=== PATIENT | female | born 1995 ===

== ENCOUNTER 2017-08-10 12:45 | Observation (INO) | payer OTHER ==
[2017-08-10] MEDS ORDERED: BETAMETHASONE IM SYRINGE IM SCH (15:15)
[2017-08-10] MEDS ORDERED: BETAMETHASONE IM SYRINGE IM ONE (15:45)
[2017-08-10] MEDS ORDERED: MAGNESIUM SULF 4 GM/WATER 100 ML IV ONE (19:55)
[2017-08-10] MEDS ORDERED: CALCIUM GLUC 10% 1 GM/10 ML VIAL IVP PRN (19:55)
[2017-08-10] MEDS ORDERED: Mag Sulf 500 ML IV SCH (20:00)
--- NOTE | 2017-08-10 20:59 | GHP ---
[f rep st] HISTORY AND PHYSICAL DATE OF ADMISSION: 08/10/2017 ADMITTING DIAGNOSIS: Intrauterine at 32 and 2/7 weeks' gestation with labor. HISTORY OF PRESENT ILLNESS: The patient is a 21-year-old, 1, para 0, with a last menstrual p eriod of 12/27/2016, and EDC of 10/03/2017, which was confirmed by a first-trimester ultrasound. The patient has had care at the [facility] since 14 weeks' gestation. She presented to Labor and Delivery at [facility] complaining of increased contractions. The patie nt reports increased contractions over the last 2 weeks, increasing in intensity and severity, worsen ing over the past week. She is concerned for possible labor. Incidentally, her mother had a history of a . Patient is concerned about this happening for her as well. The patient denies vaginal bleeding, leakage of fluid, abnormal discharge. Has reported good movement. C ontractions have been irregular in pattern. However, increasing in intensity over the course of the day. Upon initial evaluation in Labor and Delivery, heart tones were 140s, reactive, moderate variab ility, category 1. She has irregular contractions that have increased over the last couple hours. E xamination included a sterile speculum exam to look for gonorrhea, chlamydia and infections, which ar e pending. A fibronectin was performed, which was positive. Her cervical exam was fingertip, 25% and high, posterior and cephalic. Baby is cephalic. The patient will be admitted for labor evaluation and treatment. PAST OBSTETRICAL HISTORY: None. This is her first . She has had issues with severe hypere mesis in this . Never been hospitalized or had any IV fluids needed in this . PAST GYNECOLOGICAL HISTORY: She has no significant past gynecological problems. PAST MEDICAL HISTORY: No medical history or surgical history. ALLERGIES: She has no known drug allergies. MEDICATIONS: Has been on vitamin B6 and Unisom. SOCIAL HISTORY: Noncontributory. LABORATORY: She is A positive, antibody negative, RPR nonreactive, rubella immune, hepatitis negativ e, HIV negative, gonorrhea and chlamydia negative. She declined genetic screening in this . Her 1-hour GTT was 81. Most recent hematocrit was 40.8. She had a normal anatomy ultrasound at 23 weeks. REVIEW OF SYSTEMS: A 10-point review of systems was negative except for pertinent positives as above in HPI. PHYSICAL EXAMINATION: GENERAL: Patient is afebrile. VITAL SIGNS: Stable. Again, heart tone s 140s, reactive, moderate variability, category 1. PELVIC: Contractions are irregular, as many as 6-7 in an hour and other episodes where there are none. CERVIX: Fingertip and soft. fibronec tin was positive. ASSESSMENT/PLAN: A 21-year-old 1, para 0, at 32 and 2/7 weeks' gestation with positive fibronectin, irregular contractions on the monitor. The patient is admitted and has been given beta methasone for lung maturity. We will give her a course of magnesium for neuro-protection as well as tocolysis to complete the betamethasone course. Then, we will assess her contraction sta tus. The patient is in agreement with the plan. /[id number]/MODL
[2017-08-10] MEDS ORDERED: LR 1,000 ML IV SCH (21:00)
[2017-08-10] MEDS: ONDANSETRON 4 MG/2 ML VIAL IVP PRN (21:08)
[2017-08-10 21:34] LABS: PLATELET COUNT 234 10^3/uL (150-400)
[2017-08-10] MEDS ORDERED: NIFEdipine 10 MG CAP PO SCH (22:00)
[2017-08-11] MEDS ORDERED: ZOLPIDEM TARTRATE 5 MG TAB PO ONE (01:52)
[2017-08-11] MEDS: ONDANSETRON 4 MG/2 ML VIAL IVP PRN ×2 (07:16→15:44)
[2017-08-11] MEDS ORDERED: ACETAMINOPHEN 500 MG TAB PO PRN (07:18)
--- NOTE | 2017-08-11 10:57 | OBPROG ---
Labor Progress Note Assessment/Plan: Assessment: 21 yo at 32w2d currently with no current evidence of labor, though has had continued contractions. Long cervical length currently is strong predictor against delivery any time soon, despite + FFN which is quite nonspecific and nonpredictive by itself. S/P betamethasone at 1600. S/p over 12 hours of Magsulfate for neuroprotection. Plan: Stop Magsulfate. Will observe until 1600 and administer 2nd dose of betamethasone. As long as appears stable - will dc home after 2nd dose betameth. PTL precautions reviewed. Recommended FU in office in 2 days - whether at [facility] or the Center. Recommended she consider care with [facility] and delivery at a hospital. Recommended pelvic rest for the next week. Tootie Hartman MD, FACOG 08/11/17 11:06 Subjective/Intrapartum Course: 08/11/17 11:16 Doing well. Some nausea with the magsulfate. Feeling an occasional mild contraction. No dyspnea, no chest pain. Good FM. Objective: 08/10/17 20:40 Patient ABO/Rh A POSITIVE 08/10/17 20:40 gen - pleasant, NAD abd - gravid, soft, NT CV - RRR chest - CTAB abd - gravid, soft, NT ext - no calf tenderness, no edema TVUS done - cephalic, cervical length 4.0, 3.8, 3.8cm, no funneling even after fundal pressure. - Contraction Pattern Assessment Current Contraction Pattern: Irregular - FHR Assessment Charles FHR (bpm): 130 FHR Pattern Variability: Moderate - Physical Exam General Appearance: WD/WN Oxytocin Orders Assessment - Pre-Induction/Augmentation Assessment Gestational Age: 32 week(s) and 4 day(s) ICD10 Worksheet Patient Problems: Problems Problem Status Onset uterine contractions in third trimester, antepartum Acute - ICD10 Problem Qualifiers (1) uterine contractions in third trimester, antepartum SNOMED Code(s): 965961040
[2017-08-11 13:07] LABS: GC AMPLIFICATION GENPROBE NEGATIVE (NEGATIVE)
[2017-08-11] MEDS ORDERED: BETAMETHASONE IM SYRINGE IM ONE (15:45)
[2017-08-11] MEDS ORDERED: NIFEdipine 10 MG CAP PO SCH (19:06)
== END 2017-08-11 16:45 | disposition home or self-care (01) ==
LOC: FLD 12:45
PROVIDERS: ADMIT Advanced Practice Midwife; ATTEND Obstetrics & Gynecology
PROC: 3E0E73Z Introduction of Anti-inflammatory into Products of Conception, Via Natural or Artificial Opening (ICD-10-PCS; principal; 2017-08-10)
DX: O60.03 Preterm labor without delivery, third trimester (principal); Z3A.32 32 weeks gestation of pregnancy
CPT/HCPCS: 59025; 96372; G0378; J0702; J2405; J3475

== ENCOUNTER 2017-08-23 01:45 | Inpatient (IN) | payer OTHER ==
[2017-08-23] MEDS ORDERED: LR 1,000 ML IV SCH (02:30)
[2017-08-23] MEDS ORDERED: LR 500 ML IV ONE (02:30)
[2017-08-23] MEDS: ONDANSETRON DISINTEGRATING 4 MG TAB PO PRN ×2 (04:40→10:05)
[2017-08-23] MEDS ORDERED: NIFEdipine 10 MG CAP PO ONE (04:45)
[2017-08-23] MEDS ORDERED: LIDOCAINE 1% 300 MG/30 ML SDV SC PRN (05:21)
[2017-08-23] MEDS ORDERED: OLIVE OIL 118 ML BTL MISC PRN (05:21)
[2017-08-23] MEDS ORDERED: MISOPROSTOL 200 MCG TAB PR PRN (05:21)
[2017-08-23] MEDS ORDERED: OXYTOCIN/NORMAL SALINE 1,000 ML IV PRN (05:21)
[2017-08-23] MEDS ORDERED: LR 1,000 ML IV PRN (05:21)
[2017-08-23] MEDS ORDERED: EPSOM SALT 454 GM TP PRN (05:21)
[2017-08-23] MEDS ORDERED: TERBUTALINE SULFATE 1 MG/ML VIAL IV PRN (05:21)
[2017-08-23] MEDS ORDERED: AMPICILLIN SODIUM 2 GM in STERILE WATER INJ 25 ML IV ONE (05:47)
[2017-08-23] MEDS ORDERED: LR 500 ML IV PRN (05:49)
[2017-08-23] MEDS ORDERED: OXYTOCIN/NORMAL SALINE 500 ML IV SCH (06:00)
[2017-08-23 06:03] LABS: PLATELET COUNT 213 10^3/uL (150-400)
--- NOTE | 2017-08-23 06:22 | GHP ---
[f rep st] PREOP HISTORY AND PHYSICAL DATE OF ADMISSION: 08/23/2017 ADMITTING DIAGNOSIS: Intrauterine at 34-2/7 weeks gestation with premature rupture of the membranes and contractions. HISTORY OF PRESENT ILLNESS: The patient is a 21-year-old, 1, para 0, with a last menstrual p eriod of 12/27/2016, EDC of 10/03/2017, confirmed by 1st trimester ultrasound. The patient has had p renatal care at [facility] since registration at 14 weeks gestation. She originally presen nehemiah to labor and delivery at [facility] on 08/10/2017, complaining of contrac tions. Upon evaluation, she was found to have a positive fibronectin and her contractions incr eased during that observation. She was admitted, received a course of betamethasone and a course of magnesium for neural protection. Her contractions remained stable. The patient had no further progr ession of contractions and she was discharged home. She has followed up at [facility] in the interim, and on the morning of the , she called complaining of increased contractions. She says that she had some increasing discharge which became watery on Wednesday the , but never h ad a gush of fluid. She had increased contractions over the weekend and increased into the morning o f the , and they were every 8 minutes the morning of the . When she was evaluated originally , heart tones were in the 140s, reactive, moderate variability, category 1. She had irregular contractions every 5-8 minutes, which increased over a couple hours. Upon further questioning when p atient talked about her wetness, and she was noted to not have the presence of a bag palpated on cerv ical exam, we performed an AmniSure, which was positive. Therefore, she was diagnosed with p remature rupture of the membranes at 34 weeks and she will be admitted for augmentation and delivery. The patient has no past obstetrical history; this is her 1st . She has had issues with se bony hyperemesis in this . She has not been hospitalized or had any IV fluids. She has no significant past gynecological problems, no significant medical or surgical history. ALLERGIES: No known drug allergies. MEDICATIONS: Include vitamin B6. She is on vitamins. SOCIAL HISTORY: Noncontributory. LABORATORY DATA: She is A positive, antibody negative, RPR nonreactive, rubella immune, hepatitis ne gative, HIV negative, gonorrhea and chlamydia negative. Declined genetic screening in this . 1-hour GTT was 81. Her hematocrit was 40.8. GBS culture is pending. REVIEW OF SYSTEMS: A 10-point review of systems is negative except for pertinent positives as above in HPI. PHYSICAL EXAMINATION: VITAL SIGNS: On exam, she is afebrile. Vital signs are stable. ABDOMEN: Fe sena heart tones 140s, reactive, moderate variability, category 1. She is ana irregular every 5-8 minutes. Cervical exam is 1-1/2, 50%, -3, cephalic and posterior, and she is positive rupture. ASSESSMENT AND PLAN: 21-year-old 1, para 0, at 34-2/7 weeks gestation with positive AmniSure , premature rupture of membranes. The patient will be admitted. 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 /[id number]/MODL
[2017-08-23] MEDS ORDERED: TERBUTALINE SULFATE 1 MG/ML VIAL ONE (08:04)
[2017-08-23] MEDS ORDERED: OLIVE OIL 118 ML BTL ONE (08:04)
[2017-08-23] MEDS ORDERED: AMMONIA AROMATIC 1 EACH AMP IH ONE (08:04)
[2017-08-23] MEDS ORDERED: LIDOCAINE 1% 300 MG/30 ML SDV ONE (08:04)
[2017-08-23] MEDS ORDERED: OXYTOCIN 10 UNIT/ML VIAL ONE (08:04)
[2017-08-23] MEDS ORDERED: MISOPROSTOL 200 MCG TAB ONE (08:05)
[2017-08-23] MEDS ORDERED: ACETAMINOPHEN 325 MG TAB PO PRN ×2 (08:06→13:04)
--- NOTE | 2017-08-23 09:27 | OBPROG ---
Labor Progress Note Assessment/Plan: Assessment: 21 yo G1 at 34w2d by LMP and first trimester US, with PPROM - for what appears to be about 48 hours. S/P a course of betamethasone at 32w3d. Currently with no signs and symptoms of chorioamnionitis. Cephalic. Alex score likely around 4 ( I did not repeat the check) Plan:Induction with pitocin. No indication for rescue dose of steroids as she is over 34 weeks with PROM Slightly higher risk of chorioamnionitis with the use of prostaglandins with, so will proceed with pitocin. B/R/A of pitocin reviewed. EFW 6lb C/S capabilities readily available. Tootie Hartman MD, FACOG 08/23/17 09:15 Subjective/Intrapartum Course: Pt doing well, feeling some irregular contractions which are becoming more painful. Is considering she may want an epidural for pain control. When asked for more details - thinks she has been leaking blood tinged fluid since Wednesday morning = 48 hours. 08/23/17 09:29 Objective: 08/23/17 05:50 Patient ABO/Rh A POSITIVE 08/23/17 05:50 37.1 83 16 124/75 Abd us done - confirmed cephalic presentation, currently LOT No measurable pocket of fluid without cord in it - confirms PROM gen - pleasant, NAD abd - gravid, soft, NT when not ana. ext - calves NT, no edema - SVE Dilation (cm): 1 Effacement (%): Less than 50 Station: -3 Membranes: SROM Amniotic Fluid Color: Clear - Contraction Pattern Assessment Current Contraction Pattern: Irregular - FHR Assessment Charles FHR (bpm): 130 FHR Pattern Variability: Moderate FHR Category: 1 - AP Antepartum Course: Was evaluated and treated for possible labor at 32w3d - received a course of betamethasone, and magsulfate for neuroprotection. PPROM appears to have occurred at 34wk, but she presented to L&D at 34w2d with some irregular contractions, and bloody show, and then Amnisure wasa positive. Pitocin induction started the morning of 08/23/17, at 34w2d, approximately 48 hours after induction. 08/23/17 09:31 Oxytocin Orders Assessment - Pre-Induction/Augmentation Assessment Gestational Age: 34 week(s) and 3 day(s) ICD10 Worksheet Patient Problems: Problems Problem Status Onset uterine contractions in third trimester, antepartum Acute
[2017-08-23] MEDS ORDERED: FENT2MCG/ML&BUP0.1% 1 EA, fentaNYL 200 MCG, BUPIVACAINE 0.5% 20 ML in NS 100 ML IV SCH (10:43)
[2017-08-23] MEDS ORDERED: NARCOTIC DRIP BAG-TOTAL ALL TYPES IV PRN (10:43)
[2017-08-23] MEDS: AMPICILLIN SODIUM 1 GM in STERILE WATER INJ 15 ML IV SCH ×2 (10:51→15:36)
--- NOTE | 2017-08-23 11:01 | OBPROG ---
Labor Progress Note Assessment/Plan: Assessment: 21 yo G1 at 34w2d by LMP and first trimester US, with PPROM - for what appears to be about 48 hours. S/P a course of betamethasone at 32w3d. Currently with no signs and symptoms of chorioamnionitis. Cephalic. Alex score likely around 4 ( I did not repeat the check) Plan:Induction with pitocin. No indication for rescue dose of steroids as she is over 34 weeks with PROM Slightly higher risk of chorioamnionitis with the use of prostaglandins with, so will proceed with pitocin. B/R/A of pitocin reviewed. EFW 6lb C/S capabilities readily available. Tootie Hartman MD, FACOG 08/23/17 10:58 A/P: 21 g1 at 34w2d with PPROM - now in active labor. Desires epidural. Will proceed with that. Anticipate vaginal delivery Subjective/Intrapartum Course: Pt doing well, feeling some irregular contractions which are becoming more painful. Is considering she may want an epidural for pain control. When asked for more details - thinks she has been leaking blood tinged fluid since Wednesday morning = 48 hours. 08/23/17 09:29 08/23/17 11:01 Very uncomfortable, requesting epidural. Demanded pitocin be turned off. Objective: 08/23/17 05:50 Patient ABO/Rh A POSITIVE 08/23/17 05:50 37.2 68 141/73 SVE 6/90/-2 - SVE Dilation (cm): 6 Effacement (%): 90 Station: -2 Membranes: SROM Amniotic Fluid Color: Clear - Contraction Pattern Assessment Current Contraction Pattern: Regular, Irregular - FHR Assessment Charles FHR (bpm): 125 FHR Pattern Variability: Moderate FHR Category: 1 - AP Antepartum Course: Was evaluated and treated for possible labor at 32w3d - received a course of betamethasone, and magsulfate for neuroprotection. PPROM appears to have occurred at 34wk, but she presented to L&D at 34w2d with some irregular contractions, and bloody show, and then Amnisure wasa positive. Pitocin induction started the morning of 08/23/17, at 34w2d, approximately 48 hours after induction. 08/23/17 09:31 Oxytocin Orders Assessment - Pre-Induction/Augmentation Assessment Gestational Age: 34 week(s) and 3 day(s) ICD10 Worksheet Patient Problems: Problems Problem Status Onset uterine contractions in third trimester, antepartum Acute
[2017-08-23] MEDS ORDERED: BUPIVACAINE 0.25% 30 ML SDV ONE (11:19)
[2017-08-23] MEDS ORDERED: fentaNYL 200 MCG, BUPIVACAINE 0.5% 20 ML in NS 100 ML EP SCH (11:30)
[2017-08-23] MEDS ORDERED: ONDANSETRON 4 MG/2 ML VIAL IVP PRN (11:32)
[2017-08-23] MEDS ORDERED: NALOXONE HCL 0.4 MG/ML INJ IVP PRN (11:32)
[2017-08-23] MEDS ORDERED: PHENYLEPHRINE HCL 100 MCG/ML SYR IVP PRN (11:32)
--- NOTE | 2017-08-23 11:41 | PREANESOB ---
Obstetric Pre-Anesthesia Info - General Info Proposed Procedure: TEGAN : 1 Para: 0 DARWIN: 10/01/17 Gestational Age: 34 week(s) and 3 day(s) - Info Status: Premature FHR Pattern: Reassuring - Labor Status Cervical Dilation per last OB SVE: 6 Station per last OB SVE: -2 Amniotic Fluid Color: Clear Magnesium Sulfate in Use: No Labor Epidural: Yes Anesthesia Allergies/Adverse Reactions: Allergy/AdvReac Type Severity Reaction Status Date / Time No Known Allergies Allergy Unverified 08/23/17 07:16 Home Medications: Medication Instructions Recorded Acetaminophen [Tylenol ES 500 mg 1,000 mg PO Q6HRS PRN tab 08/11/17 (*)] B-Complex Tablet 08/23/17 Unisom 08/23/17 Vitamin D3 08/23/17 Visit Medications: Generic Name Dose Route Start Last Admin Trade Name Freq PRN Reason Stop Dose Admin Acetaminophen 325 - 650 mg 08/23/17 08:06 08/23/17 08:18 Tylenol PO 02/19/18 08:05 650 mg Q4HRS PRN Administration Pain, Mild/Fever, Can Take PO Diphenhydramine HCl 25 - 50 mg 08/23/17 11:32 Benadryl Injection IVP 02/19/18 11:31 Q6HRS PRN Itching Lactated Ringer's 1,000 mls @ 125 mls/hr 08/23/17 02:30 08/23/17 06:31 Lr IV 02/19/18 02:29 1,000 mls CONT YESENIA Administration Lactated Ringer's 1,000 mls @ 0 mls/hr 08/23/17 05:21 Lr IV 08/24/17 05:20 PRN PRN SEE PROTOCOL CONDITIONS Protocol Per Protocol Oxytocin/Sodium Chloride 1,000 mls @ 125 mls/hr 08/23/17 05:21 Pitocin 20 Units/Ns (Premix) IV PRN PRN Post Bleeding Ampicillin Sodium 1 gm/ 15 mls @ 60 mls/hr 08/23/17 10:00 08/23/17 10:51 Sterile Water IV 09/22/17 09:59 15 mls Q4H YESENIA Administration Protocol Lactated Ringer's 500 mls @ 500 mls/hr 08/23/17 05:49 Lr IV 08/24/17 05:49 PRN PRN Maternal Hypotension Oxytocin/Sodium Chloride 500 mls @ 0 mls/hr 08/23/17 06:00 08/23/17 09:27 Pitocin 30 Units/Ns (Premix) IV 02/19/18 05:59 500 mls CONT YESENIA Administration Protocol Per Protocol Fentanyl 200 mcg/ Bupivacaine 100 mls @ 0 mls/hr 08/23/17 11:30 HCl 20 ml/ Sodium Chloride EP 09/02/17 11:29 CONT YESENIA Protocol As Directed Lactated Ringer's 500 mls @ 0 mls/hr 08/23/17 12:00 Lr IV 02/19/18 11:59 CONT YESENIA As Directed Ibuprofen 600 mg 08/23/17 05:21 Motrin PO 02/19/18 05:20 Q6HRS PRN post , inflammation Lidocaine HCl 300 mg 08/23/17 05:21 Lidocaine Hcl 1% SC 02/19/18 05:20 ONCE PRN episiotomy Magnesium Sulfate 454 gm 08/23/17 05:21 Epsom Salt TP 02/19/18 05:20 Q1H PRN perineal discomfort Miscellaneous Medication 0 ea 08/23/17 21:00 Non-Formulary PO 02/19/18 20:59 BID YESENIA Miscellaneous Medication 1 ea 08/23/17 10:43 Narcotic Drip-Total All Types IV 02/19/18 10:42 PRN PRN Pyxis removal Misoprostol 800 - 1,000 mcg 08/23/17 05:21 Cytotec TN ONCE PRN Vaginal Atony/Bleeding Naloxone HCl 0.4 mg 08/23/17 11:32 Narcan IVP 02/19/18 11:31 PRN PRN Respiratory depression [place] Oil 118 ml 08/23/17 05:21 Sweet Oil MISC 02/19/18 05:20 ONCE PRN perineal massage Ondansetron HCl 4 mg 08/23/17 04:31 08/23/17 10:05 Zofran Odt PO 02/19/18 04:30 4 mg Q4 PRN Administration Nausea/Vomiting, Use 1st Ondansetron HCl 4 mg 08/23/17 11:32 Zofran IVP 08/24/17 11:31 Q4HRS PRN Nausea/Vomiting, Can't Take PO Phenylephrine HCl 100 mcg 08/23/17 11:32 Neosynephrine IVP 02/19/18 11:31 .Q2M PRN Hypotension Terbutaline Sulfate 0.25 mg 08/23/17 05:21 Brethine IV 02/19/18 05:20 ONCE PRN Tachysystole Discontinued Medications Generic Name Dose Route Start Last Admin Trade Name Darlene PRN Reason Stop Dose Admin Ammonia (Aromatic Spirit) Confirm 08/23/17 08:04 Ammonia Aromatic Administered 08/23/17 08:05 Dose 1 each IH .STK-MED ONE Bupivacaine HCl Confirm 08/23/17 11:19 Sensorcaine 0.25% Sdv Administered 08/23/17 11:20 Dose 30 ml .ROUTE .STK-MED ONE Lactated Ringer's 500 mls @ 0 mls/hr 08/23/17 02:30 08/23/17 08:54 Lr IV 08/23/17 02:31 Not Given ONCE ONE Wide Open Ampicillin Sodium 2 gm/ 25 mls @ 100 mls/hr 08/23/17 05:47 08/23/17 06:11 Sterile Water IV 08/23/17 06:01 25 mls ONCE ONE Administration Protocol Lidocaine HCl Confirm 08/23/17 08:04 Lidocaine Hcl 1% Administered 08/23/17 08:05 Dose 300 mg .ROUTE .STK-MED ONE Misoprostol Confirm 08/23/17 08:05 Cytotec Administered 08/23/17 08:06 Dose 1,000 mcg .ROUTE .STK-MED ONE Nifedipine 20 mg 08/23/17 04:45 08/23/17 04:41 Procardia PO 08/23/17 04:46 20 mg ONCE ONE Administration [place] Oil Confirm 08/23/17 08:04 Sweet Oil Administered 08/23/17 08:05 Dose 118 ml .ROUTE .STK-MED ONE Oxytocin Confirm 08/23/17 08:04 Pitocin Administered 08/23/17 08:05 Dose 40 unit .ROUTE .STK-MED ONE Terbutaline Sulfate Confirm 08/23/17 08:04 Brethine Administered 08/23/17 08:05 Dose 1 mg .ROUTE .STK-MED ONE - Vital Signs Height/Weight (Nursing): Height 160.02 cm Weight 64.41 kg Labs: 08/23/17 05:50 Patient ABO/Rh A POSITIVE 08/23/17 05:50
--- NOTE | 2017-08-23 11:45 | POSTANESTH ---
Post Anesthetic Evaluation Cardiovascular Status: Normal, Stable, Similar to Pre-Op Cond Respiratory Status: Normal, Stable, Similar to Pre-op Cond. Level of Consciousness/Mental Status: Can Participate in Eval, Alert and Oriented Pain Control: Adequate, Prn Tx Ordered Nausea/Vomiting Control: Adequate, Prn Tx Ordered Complications Possibly Related to Anesthesia: None Noted
[2017-08-23] MEDS ORDERED: LR 500 ML IV SCH (12:00)
[2017-08-23] MEDS ORDERED: fentaNYL 2MCG/ML/BUP 0.1% RTU 100 ML EP SCH (12:00)
--- NOTE | 2017-08-23 12:55 | OBDEL ---
Info Type: Vaginal Presentation at Delivery: Vertex L&D Analgesia/Anesthesia Type: Epidural GBS+: No (unknown) Antibiotic Used for + GBS: Ampicillin (used for prophylaxis, , unknown GBS) Intrapartum Medications: Generic Name Dose Route Start Last Admin Trade Name Darlene PRN Reason Stop Dose Admin Acetaminophen 325 - 650 mg 08/23/17 08:06 08/23/17 08:18 Tylenol PO 02/19/18 08:05 650 mg Q4HRS PRN Administration Pain, Mild/Fever, Can Take PO Lactated Ringer's 1,000 mls @ 125 mls/hr 08/23/17 02:30 08/23/17 06:31 Lr IV 02/19/18 02:29 1,000 mls CONT YESENIA Administration Ampicillin Sodium 1 gm/ 15 mls @ 60 mls/hr 08/23/17 10:00 08/23/17 10:51 Sterile Water IV 09/22/17 09:59 15 mls Q4H YESENIA Administration Protocol Oxytocin/Sodium Chloride 500 mls @ 0 mls/hr 08/23/17 06:00 08/23/17 09:27 Pitocin 30 Units/Ns (Premix) IV 02/19/18 05:59 500 mls CONT YESENIA Administration Protocol Per Protocol Ondansetron HCl 4 mg 08/23/17 04:31 08/23/17 10:05 Zofran Odt PO 02/19/18 04:30 4 mg Q4 PRN Administration Nausea/Vomiting, Use 1st Discontinued Medications Generic Name Dose Route Start Last Admin Trade Name Darlene PRN Reason Stop Dose Admin Lactated Ringer's 500 mls @ 0 mls/hr 08/23/17 02:30 08/23/17 08:54 Lr IV 08/23/17 02:31 Not Given ONCE ONE Wide Open Ampicillin Sodium 2 gm/ 25 mls @ 100 mls/hr 08/23/17 05:47 08/23/17 06:11 Sterile Water IV 08/23/17 06:01 25 mls ONCE ONE Administration Protocol Nifedipine 20 mg 08/23/17 04:45 08/23/17 04:41 Procardia PO 08/23/17 04:46 20 mg ONCE ONE Administration - Hospital Course Intrapartum: Pt doing well, feeling some irregular contractions which are becoming more painful. Is considering she may want an epidural for pain control. When asked for more details - thinks she has been leaking blood tinged fluid since Wednesday morning = 48 hours. 08/23/17 09:29 08/23/17 11:01 Very uncomfortable, requesting epidural. Demanded pitocin be turned off. Indications for Delivery: PPROM Vaginal Delivery - Delivery Provider Delivery Physician/CNM: Tootie Hartman - Labor and Delivery Onset of Contractions Date: 08/22/17 Onset of Contractions Time: 14:00 Onset of Contractions Type: Induced Rupture of Membranes Date: 08/21/17 Rupture of Membranes Time: 08:00 (unknown exact time) Rupture of Membranes Type: Premature Amniotic Fluid Color: Clear Dilation Complete Date: 08/23/17 Dilation Complete Time: 12:19 Placenta Delivery Date: 08/23/17 Placenta Delivery Time: 12:34 Total Hours of Labor: 22 Non-surgical Procedures: Amniotomy (of forebag when completely dilated.) Laceration: 2nd Degree Repair: 3-0, Vicryl Vaginal Sponge Count Correct: Yes Vaginal Needle Count Correct: Yes Vaginal Sweep Performed: Yes EBL: 300 Delivery Events: None (pushed < 10 minutes) Data DARWIN: 10/01/17 Gestational Age: 34 week(s) and 3 day(s) Charles Delivery Date: 08/23/17 Delivery Time: 12:31 Sex of : Male ICD10 Worksheet Patient Problems: Problems Problem Status Onset PROM, delivered, current hospitalization Acute delivery after section Acute uterine contractions in third trimester, antepartum Acute - ICD10 Problem Qualifiers (1) PROM, delivered, current hospitalization
[2017-08-23] MEDS: IBUPROFEN 600 MG TAB PO PRN ×2 (13:00→19:26)
[2017-08-23] MEDS ORDERED: SIMETHICONE 80 MG TAB CHEW PO PRN (13:04)
[2017-08-23] MEDS ORDERED: HYDROCORTISONE 0.5% CREAM TP PRN (13:04)
[2017-08-23] MEDS: DOCUSATE SODIUM 100 MG CAP PO PRN (19:27)
[2017-08-23] MEDS: UNISOM 25 MG PO SCH (23:04)
[2017-08-24] MEDS: IBUPROFEN 600 MG TAB PO PRN ×3 (02:26→18:18)
[2017-08-24] MEDS: DOCUSATE SODIUM 100 MG CAP PO PRN (09:52)
--- NOTE | 2017-08-24 10:06 | OBPP ---
Progress Note Assessment/Plan: Assessment: 21 y/o s/p at 34.2 wks ega after PPROM PPD #1 Baby in NICU, stable and doing well Plan: Continue routine PP care. Plan D/C to border status tomorrow 08/24/17 10:00 08/24/17 10:09 Subjective/ Course: 08/24/17 10:06 Patient is doing well this morning. Reports lochia to be light, pain controlled with oral medication, tolerating regular diet and voiding. Baby stable in NICU. Plans to breastfeed, currently pumping. Objective: 08/23/17 05:50 Patient ABO/Rh A POSITIVE 08/23/17 05:50 Group B Strep DNA NEGATIVE (NEGATIVE) 08/23/17 02:31 Temp Pulse Resp BP Pulse Ox 36.4 C 92 16 107/73 96 08/24/17 08:31 08/24/17 08:31 08/24/17 08:31 08/24/17 08:31 08/24/17 08:31 VSS Respirations unlabored Extremities with minimal edema Lochia scant Fundus firm Perineum healing well well approximated Nipples intact Uterine Position/Fundal Height: Umbilicus -1 Uterine Tone: Firm Physical Exam - Physical Exam EENT: PERRL/EOMI Respiratory: lungs clear Cardiac/Chest: regular rate, rhythm Extremities: normal range of motion Skin: normal color Neuro/Psych: no motor/sensory deficits, alert, normal mood/affect, oriented x 3
[2017-08-24] MEDS: UNISOM 25 MG PO SCH ×2 (18:18→22:05)
[2017-08-25] MEDS: IBUPROFEN 600 MG TAB PO PRN ×3 (00:05→13:03)
[2017-08-25 09:05] VITALS: BP 111/69
--- NOTE | 2017-08-25 11:46 | OBPP ---
Progress Note Assessment/Plan: Assessment: PPD2 s/p 34 wks. Baby doing well in NICU - will transition to boarding status. GBS neg. Reviewed H/H this AM, rec'd PO Fe supps, says she has those at home and will try to take them. F/u 4 and 6 wks -- Rubella immune, Rh pos. CANDIDO 08/25/17 11:47 Subjective/ Course: 08/24/17 10:06 Patient is doing well this morning. Reports lochia to be light, pain controlled with oral medication, tolerating regular diet and voiding. Baby stable in NICU. Plans to breastfeed, currently pumping. 08/25/17 11:43 Doing great - had a good night. going well. Will be transitioning to boarding status today. No need for narc Rx. 08/25/17 11:47 Objective: 08/23/17 05:50 Patient ABO/Rh A POSITIVE 08/23/17 05:50 Group B Strep DNA NEGATIVE (NEGATIVE) 08/23/17 02:31 Temp Pulse Resp BP Pulse Ox 36.6 C 69 16 111/69 96 08/25/17 08:00 08/25/17 08:00 08/25/17 08:00 08/25/17 08:00 08/25/17 08:00 Uterine Position/Fundal Height: At Umbilicus Uterine Tone: Firm
--- NOTE | 2017-08-25 11:49 | OBGCSDC ---
General Delivery Information - General Info : 1 Para: 1 Abortions: 0 Type: Vaginal L&D Analgesia/Anesthesia Type: Epidural Admission Date: 08/23/17 Labs: Patient ABO/Rh A POSITIVE 08/23/17 05:50 Hct 37.8 % (38.0-47.0) L 08/23/17 05:50 Group B Strep DNA NEGATIVE (NEGATIVE) 08/23/17 02:31 - Hospital Course Antepartum: Was evaluated and treated for possible labor at 32w3d - received a course of betamethasone, and magsulfate for neuroprotection. PPROM appears to have occurred at 34wk, but she presented to L&D at 34w2d with some irregular contractions, and bloody show, and then Amnisure wasa positive. Pitocin induction started the morning of 08/23/17, at 34w2d, approximately 48 hours after induction. 08/23/17 09:31 Intrapartum: Pt doing well, feeling some irregular contractions which are becoming more painful. Is considering she may want an epidural for pain control. When asked for more details - thinks she has been leaking blood tinged fluid since Wednesday morning = 48 hours. 08/23/17 09:29 08/23/17 11:01 Very uncomfortable, requesting epidural. Demanded pitocin be turned off. : 08/24/17 10:06 Patient is doing well this morning. Reports lochia to be light, pain controlled with oral medication, tolerating regular diet and voiding. Baby stable in NICU. Plans to breastfeed, currently pumping. 08/25/17 11:43 Doing great - had a good night. going well. Will be transitioning to boarding status today. No need for narc Rx. 08/25/17 11:47 Vaginal - Delivery Provider Delivery Physician/CNM: Tootie Hartman - Diagnosis Labor: Induced Rupture of Membranes Type: Premature Amniotic Fluid Color: Clear Laceration: 2nd Degree Repair: 3-0, Vicryl Delivery Events: None (pushed < 10 minutes) - Procedures Non-surgical Procedures: Amniotomy (of forebag when completely dilated.) - Delivery Non-surgical Procedures: Amniotomy (of forebag when completely dilated.) EBL: 300 Data DARWIN: 10/01/17 Gestational Age: 34 week(s) and 5 day(s) Charles Delivery Date: 08/23/17 Delivery Time: 12:31 Sex of Infant: Male Fowler Weight (gm): 2069 g Score (1 Min): 6 Score (5 Min): 8 Discharge Information - Discharge Information Condition: Good Instruction/Follow Up: See Instruction Sheet, Four Weeks, Six Weeks
[2017-08-25] MEDS: DOCUSATE SODIUM 100 MG CAP PO PRN ×2 (13:03→16:19)
[2017-08-25] MEDS: UNISOM 25 MG PO SCH (16:51)
== END 2017-08-25 16:53 | disposition home or self-care (01) | DRG 775 ==
LOC: FLD 01:45 → OBSVTOIN 01:45 → FOB 16:54
PROVIDERS: ADMIT Obstetrics & Gynecology; ATTEND Obstetrics & Gynecology
DX: O42.013 Preterm premature rupture of membranes, onset of labor within 24 hours of rupture, third trimester (principal); O70.1 Second degree perineal laceration during delivery; Z3A.34 34 weeks gestation of pregnancy; Z37.0 Single live birth
CPT/HCPCS: J0290; J2590; J3010; J3105